=== PATIENT | male | born 1955 | race African-American/Black ===

== ENCOUNTER 2016-07-17 22:00 | Emergency (ER) | payer MEDICARE, OTHER | END 2016-07-18 00:25 | disposition home or self-care (01) | LOC: FER 22:00 | DX: T82.838A Hemorrhage due to vascular prosthetic devices, implants and grafts, initial encounter (principal); E11.22 Type 2 diabetes mellitus with diabetic chronic kidney disease; N18.9 Chronic kidney disease, unspecified; Z79.4 Long term (current) use of insulin; Z79.82 Long term (current) use of aspirin; Z79.899 Other long term (current) drug therapy; Z94.0 Kidney transplant status; Y83.8 Other surgical procedures as the cause of abnormal reaction of the patient, or of later complication, without mention of misadventure at the time of the procedure | CPT/HCPCS: 99284 ==

== ENCOUNTER 2021-05-06 12:18 | Emergency (ER) | payer MEDICARE, OTHER ==
[2021-05-06 14:25] LABS: BASOPHIL 1.3 % (0-2); EOSINOPHIL 5.3 % (0-7); HCT 34.4 % (42.0-52.0); LYMPHOCYTE 11.4 % (15-48); MCH 30.3 pg (25.0-31.0); MCV 94.8 fL (78.0-100.0); MPV 10.8 fL (6.0-9.5); NEUTROPHIL 60.7 % (41-80); NRBC 0; PLT 143 K/uL (150-400); RBC 3.63 M/uL (4.70-6.00); RDW 15.1 % (11.5-14.0)
[2021-05-06 14:34] LABS: WBC 3.8 K/uL (4.0-10.5)
[2021-05-06 14:48] LABS: ALBUMIN 3.3 g/dL (3.4-5.0); BILIRUBIN - TOTAL 0.5 mg/dL (0.2-1.0); BUN/CREAT RATIO (CALC) 4.4 RATIO; CREATININE 5.27 mg/dL (0.67-1.17); GLOBULIN (CALCULATION) 4.6 g/dL; POTASSIUM 4.5 mmol/L (3.5-5.1); TOTAL PROTEIN 7.9 g/dL (6.4-8.2)
[2021-05-06 15:40] LABS: CORONAVIRUS 2019 SARS-COV-2 NEGATIVE (NEGATIVE); INFLUENZA A NAA NEGATIVE (NEGATIVE)
== END 2021-05-06 17:35 | disposition home or self-care (01) ==
LOC: FER 12:18
PROVIDERS: Physician Assistant
DX: R05.9 Cough, unspecified (principal); R19.7 Diarrhea, unspecified; R53.1 Weakness; R09.81 Nasal congestion; I12.0 Hypertensive chronic kidney disease with stage 5 chronic kidney disease or end stage renal disease; E11.22 Type 2 diabetes mellitus with diabetic chronic kidney disease; N18.6 End stage renal disease; E66.9 Obesity, unspecified; Z20.822 Contact with and (suspected) exposure to COVID-19; Z99.2 Dependence on renal dialysis
CPT/HCPCS: 36415; 71045; 80053; 84484; 85025; 93005; U0002

== ENCOUNTER 2021-08-19 06:00 | Emergency (ER) | payer OTHER, MEDICARE ==
[2021-08-19] MEDS ORDERED: FLEXERIL5 MG PO (10:06)
[2021-08-19] MEDS ORDERED: NORCO 5-325 TA1 EACH PO (10:06)
== END 2021-08-19 10:07 | disposition home or self-care (01) ==
LOC: FER 06:00
DX: S13.4XXA Sprain of ligaments of cervical spine, initial encounter (principal); S33.5XXA Sprain of ligaments of lumbar spine, initial encounter; S43.401A Unspecified sprain of right shoulder joint, initial encounter; M23.91 Unspecified internal derangement of right knee; V49.40XA Driver injured in collision with unspecified motor vehicles in traffic accident, initial encounter
CPT/HCPCS: 72125; 72131; 73030; 73560

== ENCOUNTER 2021-12-26 11:16 | Emergency (ER) | payer MEDICARE, OTHER ==
[~2021-12-26 11:16] MED LIST: FLEXERIL5 MG PO; NORCO 5-325 TA1 EACH PO
[2021-12-26] MEDS ORDERED: NORCO 5-325 TA1 EACH PO (13:05)
== END 2021-12-26 13:20 | disposition home or self-care (01) ==
LOC: FER 11:16
DX: S92.351A Displaced fracture of fifth metatarsal bone, right foot, initial encounter for closed fracture (principal); E11.9 Type 2 diabetes mellitus without complications; X58.XXXA Exposure to other specified factors, initial encounter; Y93.89 Activity, other specified
CPT/HCPCS: 73630

== ENCOUNTER 2022-01-31 16:44 | Emergency (ER) | payer MEDICARE, OTHER ==
[2022-01-31 19:10] LABS: BASOPHIL 1.4 % (0-2); EOSINOPHIL 3.8 % (0-7); HCT 32.4 % (42.0-52.0); HGB 10.5 g/dl (13.2-18.0); LYMPHOCYTE 16.7 % (15-48); MCHC 32.4 g/dL (32.0-36.0); MCV 92.6 fL (78.0-100.0); MONOCYTE 19.1 % (0-12); MPV 11.3 fL (6.0-9.5); NRBC 0; PLT 132 K/uL (150-400); RDW 15.1 % (11.5-14.0)
[2022-01-31 19:27] LABS: INR 1.34 (0.9-1.2); PROTHROMBIN TIME 16.2 SECONDS (11.9-13.9)
[2022-01-31 19:28] LABS: PTT 45.1 SECONDS (24.9-34.6)
[2022-01-31 19:46] LABS: ALBUMIN 3.3 g/dL (3.4-5.0); BILIRUBIN - TOTAL 0.6 mg/dL (0.2-1.0); BUN/CREAT RATIO (CALC) 3.1 RATIO; CREATININE 6.47 mg/dL (0.67-1.17); GLOBULIN (CALCULATION) 4.4 g/dL; POTASSIUM 4.4 mmol/L (3.5-5.1); TOTAL PROTEIN 7.7 g/dL (6.4-8.2)
== END 2022-01-31 20:17 | disposition home or self-care (01) ==
LOC: FER 16:44
PROVIDERS: Internal Medicine
DX: K62.5 Hemorrhage of anus and rectum (principal); K21.9 Gastro-esophageal reflux disease without esophagitis; I25.10 Atherosclerotic heart disease of native coronary artery without angina pectoris; I10 Essential (primary) hypertension; E78.5 Hyperlipidemia, unspecified; E11.40 Type 2 diabetes mellitus with diabetic neuropathy, unspecified; Z20.822 Contact with and (suspected) exposure to COVID-19; Z95.810 Presence of automatic (implantable) cardiac defibrillator; Z79.899 Other long term (current) drug therapy
CPT/HCPCS: 36415; 80053; 85025; 85610; 85730; 86850; 86900; 86901; 99283; U0002